=== PATIENT | male | born 2005 | race Caucasian/White ===

== ENCOUNTER 2024-03-18 21:04 | Emergency (ER) | payer BC, SELFPAY ==
[2024-03-18 21:09] VITALS: BP 127/77; PULSE 76; RESP 14; TEMP 36.7; O2SAT 96; BMI 23.1
[2024-03-18 21:24] VITALS: BP 131/72; PULSE 96; O2SAT 98
--- NOTE | 2024-03-18 21:56 | W.ED.EAR ---
HPI - Ear Problem General: Chief complaint: Ear Stated complaint: left ear pain Time Seen by Provider: 03/18/24 21:27 History of Present Illness: 19-year-old male who has had a history of ear infections as a child. He reports ear pain and fullness on the left side he said some wax came out, but nothing else in terms of drainage. No fever. No cough. No other upper respiratory symptoms. Pain started today Related Data Allergies Allergy/AdvReac Type Severity Reaction Status Date / Time No Known Allergies Allergy Verified 03/18/24 21:13 Physical Exam Const: COMMON NORMALS: no acute distress GENERAL APPEARANCE: cooperative; not ill appearing and not frail appearing HENMT: COMMON NORMALS: normocephalic, atraumatic, external ears normal and Normal external nose present HEAD & SCALP: normocephalic and atraumatic FACE & SINUS: normal facial exam and face symmetric NOSE: Normal external nose present EXTERNAL EAR: Yes external ears normal TYMPANIC MEMBRANE: TM normal on the right and TM abnormal TM laterality: left Details: bulging, effusion and myringotomy tube present Eye: COMMON NORMALS: Equal, round and reactive pupils present and EOMs intact bilaterally PUPIL: Yes Equal, round and reactive pupils present Neck/C-Spine: GENERAL: Yes trachea midline Chest: CHEST: Yes Symmetrical chest wall rise Resp: COMMON NORMALS: normal respiratory effort, No retractions, No use of accessory muscles and clear to auscultation bilaterally AUSCULTATION: clear to auscultation bilaterally Cardio: COMMON NORMALS: regular rate and regular rhythm RATE: regular rate RHYTHM: regular rhythm Neuro: GALILEA COMA SCALE: document GCS findings [place] coma scale eye opening: Spontaneous [place] coma scale verbal response: Orientated [place] coma scale motor response: Obey commands [place] coma scale total score: 15 SENSORY EXAM: Yes extremities (intact) Skin: COMMON NORMALS: no rashes or lesions noted GENERAL SKIN EXAM: no rashes or lesions noted Course Vital Signs: Vital signs: Vital Signs Temperature 98.0 F 03/18/24 21:09 Pulse Rate 81 03/18/24 22:48 Respiratory Rate 18 03/18/24 22:13 Blood Pressure 123/67 03/18/24 22:48 Pulse Oximetry 97 03/18/24 22:48 Oxygen Delivery Me thod Room Air 03/18/24 21:24 MDM - Ear Medical Decision Making No overt infection. There is fluid behind the membrane. Dexamethasone for eustachian tube swelling/dysfunction. Return for worsening symptoms. No radiology studies performed this visit Discharge Plan Discharge Patient Disposition: Home Clinical Impression: Otitis media Qualifiers: Otitis media type: serous Chronicity: acute Laterality: left Recurrence: non-recurrent Qualified Code(s): H65.02 - Acute serous otitis media, left ear Condition: Stable Discharge Orders: Discharge ED (Routine); Ordered 03/18/24 Ordered By: Markell Dc Patient Instructions: Earache (ED), Opioid Safety, Pain Management Activity Restrictions/Additional Instructions: Return for fever, cough, shortness of breath, worsening pain despite treatment, any other concerning symptoms. Coding Level of Care Code ED Staff Development Nurse for [employer]
[2024-03-18 22:13] VITALS: RESP 18
[2024-03-18] MEDS: oxyCODONE-APAP 5-325 mg Tablet 2 TAB PO (22:13)
[2024-03-18] MEDS: dexamethasone 4 mg Tablet 10 MG PO (22:14)
--- NOTE | 2024-03-18 22:47 | PC.NURSE ---
One tab of Percocet sent home with patient.
[2024-03-18 22:48] VITALS: BP 123/67; PULSE 81; O2SAT 97
== END 2024-03-18 22:17 | disposition home or self-care (01) ==
PROVIDERS: Emergency Provider Emergency Medicine
DX: H65.02 Acute serous otitis media, left ear (principal)
CPT/HCPCS: 99283; J8540